=== PATIENT | female | born 1975 | race Caucasian/White ===

== ENCOUNTER 2023-05-10 22:56 | Emergency (ER) | payer BC, OTHER ==
[~2023-05-10] VITALS: Ht 180.3 cm; Wt 136.0 kg
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
[2023-05-11] MEDS ORDERED: TETANUS,DIPTH,PERTUSS P/F (BOOSTRIX) 0.5 ML VIAL IM ONE (00:15)
[2023-05-11 00:22] VITALS: BP 125/89
== END 2023-05-11 00:22 | disposition home or self-care (01) ==
LOC: ER 23:00
DX: S09.90XA Unspecified injury of head, initial encounter (principal); S41.159A Open bite of unspecified upper arm, initial encounter; S80.01XA Contusion of right knee, initial encounter; Z23 Encounter for immunization; Y04.1XXA Assault by human bite, initial encounter
CPT/HCPCS: 82947; 90715

== ENCOUNTER 2023-05-29 05:03 | Emergency (ER) | payer BC ==
[~2023-05-29] VITALS: Ht 177.8 cm; Wt 135.0 kg
[2023-05-29] MEDS ORDERED: FAMOTIDINE INJ 20MG/2ML VIAL IV STA (05:31)
[2023-05-29] MEDS ORDERED: diphenhydrAMINE INJ 50 MG/ML VIAL IV STA (05:31)
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
[2023-05-29 05:44] LABS: BASOPHILS % (AUTO) 1 % (0-10); EOSINOPHILS # (AUTO) 0.2 10^3/uL (0.0-0.3); EOSINOPHILS % (AUTO) 3 % (0-10); HEMATOCRIT 41 % (35-52); HEMOGLOBIN 13.4 g/dL (11.5-16.0); LYMPHOCYTES % (AUTO) 23 % (12-44); MEAN CORPUSCULAR HEMOGLOBIN 29 pg (25-34); MEAN CORPUSCULAR HGB CONC 32 g/dL (32-36); MEAN CORPUSCULAR VOLUME 91 fL (80-99); MEAN PLATELET VOLUME 10.8 fL (9.0-12.2); MONOCYTES # (AUTO) 0.6 10^3/uL (0.0-1.0); MONOCYTES % (AUTO) 7 % (0-12); NEUTROPHILS # (AUTO) 5.6 10^3/uL (1.8-7.8); NEUTROPHILS % (AUTO) 66 % (42-75); PLATELET COUNT 262 10^3/uL (130-400); WHITE BLOOD COUNT 8.5 10^3/uL (4.3-11.0)
[2023-05-29] MEDS ORDERED: dexAMETHasone INJ 10 MG/ML 1 ML VIAL IV ONE (05:45)
[2023-05-29 05:48] LABS: POTASSIUM 3.8 MMOL/L (3.6-5.0)
[2023-05-29 05:50] LABS: CALCIUM 9.8 MG/DL (8.5-10.1)
[2023-05-29 05:54] LABS: CREATININE SERUM 0.79 MG/DL (0.60-1.30)
[2023-05-29] MEDS ORDERED: CLINDAMYCIN 600 MG/50 ML IVPB 50 ML IV ONE (06:45)
[2023-05-29] MEDS ORDERED: AZIT250T12 PO (10:22)
[2023-05-29] MEDS ORDERED: AMLO-250 PO (11:10)
[2023-05-29 11:11] VITALS: BP 135/88
== END 2023-05-29 11:11 | disposition home or self-care (01) ==
LOC: EDUNIT# 05:03 → ER 05:05
DX: J02.9 Acute pharyngitis, unspecified (principal); K12.2 Cellulitis and abscess of mouth; I10 Essential (primary) hypertension; E66.9 Obesity, unspecified; Z68.41 Body mass index [BMI] 40.0-44.9, adult; Z88.0 Allergy status to penicillin; Z79.899 Other long term (current) drug therapy
CPT/HCPCS: 36415; 80048; 85025; 86141; 86308; 87430; 93041; 96365; 96375